=== PATIENT | male | born 1940 | race Caucasian/White ===

== ENCOUNTER 2022-11-10 07:29 | Inpatient (IN) ==
[2022-11-10] MEDS ORDERED: IOPAMIDOL 100 ML BOTTLE IV ONE (07:30)
[2022-11-10] MEDS ORDERED: 0.9 % SODIUM CHLORIDE 1,000 ML IV ONE (07:37)
--- NOTE | 2022-11-10 07:47 | Emergency Department Note ---
Weakness HPI General Chief complaint: Weakness Stated complaint: Weakness Time Seen by Provider: 11/10/22 07:36 Source: patient and family Mode of arrival: wheelchair Limitations: no limitations History of Present Illness HPI Narrative: Narrative: Vanessa presents ED with patient with concerns for stroke. State patient was a bed at 8 PM last night and was completely normal. She woke up at 4 the patient this morning and she heard him screaming from the room. When she got that he was on the floor. She states that he was weak with slurred speech and some left-sided facial droopiness. States this is not his baseline. Patient states he just feels weak. He denies fever, chills, nausea, vomiting, cardiac chest pain, heart palpitations, hemoptysis, diarrhea, dysuria, hematuria, urinary frequency, abdominal pain, extremity weakness, extremity numbness. Patient was able to ambulate. Denies any other alleviating or aggravating factors. Related Data Home Medications Medication Instructions Recorded Confirmed clopidogrel 75 mg tablet 75 mg PO QDAY 05/19/19 11/10/22 lisinopril 5 mg tablet 5 mg PO QDAY 05/19/19 11/10/22 omeprazole 20 mg capsule,delayed 20 mg PO QDAY 05/19/19 11/10/22 release simvastatin 10 mg tablet 10 mg PO QDAY 05/19/19 11/10/22 timolol 0.5 % eye drops 1 drp ophthalmic (eye) QDAY 05/19/19 11/10/22 Previous Rx's Medication Instructions Recorded benzonatate 100 mg capsule 100 mg PO .q 8 hours PRN cough #30 05/19/19 (Edel Turner) caps Allergies Allergy/AdvReac Type Severity Reaction Status Date / Time aspirin [ASPIRIN] Allergy Unknown GI UPSET Verified 11/10/22 07:33 NSAIDS (Non-Steroidal Allergy Unknown GI UPSET Verified 11/10/22 07:33 Anti-Inflamma [NSAIDS (NON-STEROIDAL ANTI-INFLAMMA] Review of Systems ROS ROS Narrative: Narrative: All systems ED: reviewed and negative except as stated. [facility] Narrative Patient History Narrative: Narrative: Medical/Surgical/Family History All Active Problems (Updated 11/10/22 @ 09:21 by Sami Simental DO) Fall (Acute) Head injury (Acute) Acute CVA (cerebrovascular accident) (Acute) Dementia (Acute) Bradycardia (Acute) Weakness (Acute) Finger laceration (Acute) Medical History Cervical vertebral fusion Hernia Social History Smoking Status: Never smoker Alcohol Intake Frequency: does not drink Substance Use: does not use Exam Narrative Narrative: Narrative: General Limitations: no limitations General appearance: Absent in distress Head Head: Present atraumatic and normocephalic Eye Eye: Present PERRL and EOMI ENT ENT: Present normal oropharynx and mucous membranes moist Neck Neck: Present normal inspection; Absent meningismus Respiratory Respiratory: Present normal lung sounds bilaterally; Absent respiratory distress Cardiovascular Cardiovascular: Present regular rate and normal rhythm Adbominal Abdominal: Present soft; Absent tenderness Extremities Extremities: Present full ROM and normal capillary refill Neurological Neurological: Present other (NIHS=3, facial droopiness some mild slurred speech) Expanded Neurological Patient oriented to: Present person, place and time (Knows what day of the week it is but does not know the year) Speech: Absent fluid speech Motor strength - LUE: 5/5 Motor strength - RUE: 5/5 Motor strength - LLE: 5/5 Motor strength - RLE: 5/5 Coma Scale Eye Opening: Spontaneous Coma Scale Motor Response: Obeys Commands Coma Scale Verbal Response: Oriented Coma Scale Total: 15 Psychiatric Psychiatric: Present normal affect and normal mood Skin Skin: Present warm (WNL) and intact Course Course Course Narrative: Patient was evaluated for weakness. Physical exam revealed that patient had left-sided facial droop and slurred speech. NIH score of 3. CT of the head was obtained with image reviewed myself with no acute cranial findings. CTA head and neck was obtained with image reviewed myself with no acute intracranial findings. Labs were obtained and were unremarkable to include normal white cell count, renal function. Case was discussed with teleneurologist who recommends the patient be admitted for complete stroke work-up to include MRI, carotid ultrasound, lipid panel. She also recommend the patient be started on Plavix 100 mg p.o. x1 dose, aspirin 325 p.o. x1 dose then 75 mg of Plavix daily x21 days and 81 mg of aspirin p.o. daily x21 days. Case was discussed with hospitalist, Dr. Balderas who has agreed to admit patient to the hospital. Plan of care was discussed with patient and his who expressed verbal understanding and agreement of plan Consultations Consultation #1: Case discussed with teleneurologist, Dr. galarza, who will review patient's images and labs and osage back when she has reviewed them. She does state the patient is outside the treatment window for any lytics so that would not be an option. Time: 07:48 Consultation #2: Dr. Lovett called back with recommendations to administer Plavix 300 mg x 1 dose and transition to 75 mg x 21 days. She also recommends administering aspirin 325 mg x 1 dose and transition to 81 mg daily x21 days. She recommends that patient have a MRI of the brain as well as carotid Doppler ultrasound. She requested permissive hypertension be allowed up to 200 systolically x24 hours and titrate down to within normal limits. Time: 08:32 Consultation #3: Case discussed with hospitalist, Dr. Balderas, who has agreed to admit patient to the hospital. Time: 10:26 Vital Signs Vital signs: Vital Signs Temperature 97.2 F 11/10/22 07:29 Pulse Rate 65 11/10/22 07:29 Respiratory Rate 19 11/10/22 07:29 Blood Pressure 180/90 11/10/22 07:29 Pulse Oximetry (%) 98 11/10/22 07:29 Oxygen Delivery Method Room Air 11/10/22 07:29 Temperature 97.2 F 11/10/22 07:29 Pulse Rate 48 L 11/10/22 10:21 Respiratory Rate 12 11/10/22 10:21 Blood Pressure 153/73 11/10/22 10:21 Pulse Oximetry (%) 99 11/10/22 10:21 Oxygen Delivery Method Room Air 11/10/22 07:29 [facility] Narrative Medical decision making narrative: Narrative: Differential Diagnosis Differential Diagnosis: Stroke, viral illness, dehydration Medical Records Medical records reviewed: Yes I reviewed the patient's medical records. Lab Data Lab results reviewed: Yes I reviewed the patient's lab results. 11/10/22 07:45 Labs: Lab Results 11/10/22 11/10/22 11/10/22 Range/Units 07:45 07:45 07:45 WBC 5.6 (4.5-11.0) K/mcL RBC 4.30 L (4.63-6.08) M/mcL Hgb 13.4 L (13.7-17.5) g/dL Hct 40.1 (40.1-51.0) % POC Hct (41-55) MCV 93.3 (80.0-100.0) fL MCH 31.2 (26.0-34.0) pg MCHC 33.4 (31.0-36.0) g/dL RDW 13.2 (11.5-14.5) % Plt Count 149 (140-440) K/mcL MPV 10.2 (8.8-12.5) fL Immature Gran % (Auto) 0.2 (0.0-0.5) % Neut % (Auto) 55.7 (38.0-78.0) % Lymph % (Auto) 28.0 (15.5-49.0) % [place] % (Auto) 12.7 H (1.0-12.0) % Eos % (Auto) 2.9 (0.0-7.0) % Baso % (Auto) 0.5 (0.0-2.0) % Lymph # (Auto) 1.57 (1.50-4.80) K/mcL [place] # (Auto) 0.71 (0.10-0.90) K/mcL Eos # (Auto) 0.16 (0.00-0.70) K/mcL Baso # (Auto) 0.03 (0.00-0.30) K/mcL Immature Gran # 0.01 (0.00-0.05) K/mcl Absolute Neutrophils 3.12 (1.80-8.00) K/mcL POC PT (11.9-14.5) POC INR (0.8-1.2) APTT 30.4 (20.0-37.0) sec POC VBG pH (7.32-7.42) POC VBG pCO2 at Temp (41-51) POC VBG pO2 (25-40) POC VBG HCO3 (24-28) POC VBG Total CO2 (25-29) POC Venous O2 Sat (40-70) POC VBG Base Excess (-2-2) VBG Lactic Acid (0.5-2) POC Sodium (133-145) POC Potassium (3.3-5.1) POC Chloride (96-108) POC Total CO2 (22-30) POC Anion Gap (8.0-16.0) POC BUN (6-20) POC Creatinine (0.6-1.2) POC Glucose (70-105) POC WB Ioniz Calcium (1.16-1.32) Total Bilirubin 0.5 (0.1-1.0) mg/dL Direct Bilirubin < 0.2 (0-0.3) mg/dL AST 15 (<40) U/L ALT 12 (<40) U/L Alkaline Phosphatase 101 (39-117) U/L Total Protein 6.8 (5.9-8.4) gm/dL Albumin 3.9 (3.2-5.2) gm/dL Globulin 2.9 (2.2-3.7) gm/dL 11/10/22 11/10/22 11/10/22 Range/Units 07:48 07:48 08:19 WBC (4.5-11.0) K/mcL RBC (4.63-6.08) M/mcL Hgb (13.7-17.5) g/dL Hct (40.1-51.0) % POC Hct 40.0 L (41-55) MCV (80.0-100.0) fL MCH (26.0-34.0) pg MCHC (31.0-36.0) g/dL RDW (11.5-14.5) % Plt Count (140-440) K/mcL MPV (8.8-12.5) fL Immature Gran % (Auto) (0.0-0.5) % Neut % (Auto) (38.0-78.0) % Lymph % (Auto) (15.5-49.0) % [place] % (Auto) (1.0-12.0) % Eos % (Auto) (0.0-7.0) % Baso % (Auto) (0.0-2.0) % Lymph # (Auto) (1.50-4.80) K/mcL [place] # (Auto) (0.10-0.90) K/mcL Eos # (Auto) (0.00-0.70) K/mcL Baso # (Auto) (0.00-0.30) K/mcL Immature Gran # (0.00-0.05) K/mcl Absolute Neutrophils (1.80-8.00) K/mcL POC PT 15.5 H (11.9-14.5) POC INR 1.3 H (0.8-1.2) APTT (20.0-37.0) sec POC VBG pH 7.39 (7.32-7.42) POC VBG pCO2 at Temp 44.1 (41-51) POC VBG pO2 35 (25-40) POC VBG HCO3 26.9 (24-28) POC VBG Total CO2 28.0 (25-29) POC Venous O2 Sat 66.0 (40-70) POC VBG Base Excess 2.0 (-2-2) VBG Lactic Acid 1.4 (0.5-2) POC Sodium 139 (133-145) POC Potassium 4.0 (3.3-5.1) POC Chloride 101 (96-108) POC Total CO2 24.0 (22-30) POC Anion Gap 19.0 H (8.0-16.0) POC BUN 15 (6-20) POC Creatinine 1.0 (0.6-1.2) POC Glucose 120 H (70-105) POC WB Ioniz Calcium 1.14 L (1.16-1.32) Total Bilirubin (0.1-1.0) mg/dL Direct Bilirubin (0-0.3) mg/dL AST (<40) U/L ALT (<40) U/L Alkaline Phosphatase (39-117) U/L Total Protein (5.9-8.4) gm/dL Albumin (3.2-5.2) gm/dL Globulin (2.2-3.7) gm/dL Radiology Data Radiology results reviewed: Yes I reviewed the patient's radiology results. Radiology results narrative: CT of the head obtained with image reviewed myself, no acute intracranial findings. CTA of the head obtained with image reviewed myself, no acute findings CTA of the neck obtained concerning for right carotid stenosis EKG Data EKG #1: EKG attestation: Yes I reviewed and interpreted this EKG. EKG shows normal: sinus rhythm Rate: normal Rhythm: NSR [place]/QRS: RBBB Heart block present: None ST segment elevation in: None ST segment depression in: None QTc: normal QRS morphology: Present normal Interpretation: no acute changes Core Measures AMI Core Measures Followed: Yes Discharge Plan Patient/Caregiver Discharge Instructions Pt seen by [employer] TR[employer] DRIVER/PA only: No Clinical Impression: Acute CVA (cerebrovascular accident) Patient Disposition: Xfer As Outpt/Obs ([facility]) Condition: Fair Follow up with: Erica Devine ARNP [Referring] - Prescriptions: No Action clopidogrel 75 mg tablet 75 mg PO QDAY omeprazole 20 mg capsule,delayed release(DR/EC) 20 mg PO QDAY timolol 0.5 % drops 1 drp OPHTHALMIC QDAY simvastatin 10 mg tablet 10 mg PO QDAY lisinopril 5 mg tablet 5 mg PO QDAY benzonatate [Tessalon Perles] 100 mg capsule 100 mg PO .q 8 hours PRN (Reason: cough) Qty: 30 0RF
[2022-11-10 07:52] LABS: POC Calcium, Ionized 1.14 (1.16-1.32)
[2022-11-10 08:23] LABS: POC INR 1.3 (0.8-1.2); POC Pro Time 15.5 (11.9-14.5)
[2022-11-10] MEDS ORDERED: PHENobarb/HYOSCY/ATROPINE/SCOP 1 DOSE BOTTLE PO ONE (08:38)
[2022-11-10] MEDS ORDERED: CLOPIDOGREL 300 MG TABLET PO ONE (08:38)
[2022-11-10] MEDS ORDERED: ASPIRIN 325 MG ENTERIC COATED TABLET PO ONE (08:38)
[2022-11-10] MEDS ORDERED: ASPIRIN 81 MG TAB.CHEW CHEWED ONE (08:43)
[2022-11-10 08:50] LABS: ALT/SGPT 12 U/L (<40); AST/SGOT 15 U/L (<40); Albumin 3.9 gm/dL (3.2-5.2); Alkaline Phosphatase 101 U/L (39-117); Bilirubin,Direct < 0.2 mg/dL (0-0.3); Bilirubin,Total 0.5 mg/dL (0.1-1.0); Globulin 2.9 gm/dL (2.2-3.7)
[2022-11-10 09:24] LABS: Basophils # (Auto) 0.03 K/mcL (0.00-0.30); Basophils % (Auto) 0.5 % (0.0-2.0); Eosinophils # (Auto) 0.16 K/mcL (0.00-0.70); Eosinophils % (Auto) 2.9 % (0.0-7.0); Hematocrit 40.1 % (40.1-51.0); Hemoglobin 13.4 g/dL (13.7-17.5); Lymphocytes # (Auto) 1.57 K/mcL (1.50-4.80); Mean Cell Volume 93.3 fL (80.0-100.0); Mean Corpuscular HGB Conc 33.4 g/dL (31.0-36.0); Mean Platelet Volume 10.2 fL (8.8-12.5); Monocytes # (Auto) 0.71 K/mcL (0.10-0.90); Monocytes % (Auto) 12.7 % (1.0-12.0); Neutrophils % (Auto) 55.7 % (38.0-78.0); Platelet Count 149 K/mcL (140-440); Red Cell Distribution Width 13.2 % (11.5-14.5); WBC 5.6 K/mcL (4.5-11.0)
--- NOTE | 2022-11-10 09:39 | Cat Scan Report ---
CLINICAL INFORMATION: Code stroke COMPARISON: Head CT 07/06/2021 TECHNIQUE: 2.5 mm helical slices were obtained in the skull base to vertex. Following reconstruction, axial reformatted images were reviewed at bone and parenchymal windows. The exam was performed using radiation dose optimization techniques including, but not limited to, automated exposure control, adjustment of the mA and/or kV according to patient size and use of iterative reconstruction technique. FINDINGS: The ventricles, sulci, fissures, and cisterns are symmetrically enlarged compatible with moderate age-related atrophy. No extra-axial fluid collections are identified. Moderate patchy chronic ischemic changes, in the deep cerebral white matter, are expected for age. There is no hemorrhage, mass effect, or edema. Bone windows show no osseous abnormality. A 5 mm lucency in the right parietal calvaria described by direct radiology has been stable since 2007 and should be considered benign IMPRESSION: Moderate atrophy and chronic ischemic changes in the deep cerebral white matter-expected for age. No acute findings Subtotal opacification of right sphenoid sinus has developed since prior exam compatible with severe sphenoid sinusitis. Left sphenoid maxillary ethmoid and frontal air cells are clear Interpreted and Authenticated by: Deshaun Villafuerte 11/10/22
--- NOTE | 2022-11-10 09:57 | Cat Scan Report ---
CLINICAL INFORMATION: Code stroke COMPARISON: None. TECHNIQUE: 80 cc of Isovue-370 were injected intravenously , and using SmartPrep to maximize cerebral arterial opacification, 0.625 mm helical slices were obtained from the skull base through the cerebral vertex. Following reconstruction , sagittal, coronal and axial reformatted images were processed and reviewed at multiple windows and levels. 3D volume rendered and MIP images were acquired at a independent workstation. The exam was performed using radiation dose optimization techniques including, but not limited to, automated exposure control, adjustment of the mA and/or kV according to patient size and use of iterative reconstruction technique. FINDINGS: The cavernous segments of the intracranial internal carotid artery contain moderate calcific plaque, but no significant stenoses. The remaining intracranial internal arteries are normal. 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 The remaining anterior cerebral arteries are unremarkable. There are scattered stenoses less than 50% within the distal MCA branches. No evidence of occlusion. There are two stenoses greater than 50% within the right P2 posterior cerebral arteries. The left posterior cerebral, basilar and intracranial vertebral arteries are patent. Superficial/deep cerebral veins and deep venous sinuses are widely patent IMPRESSION: 1. No evidence of thrombotic or embolic occlusion. 2. Hypoplasia of the left A1 segment. Normal-appearing left and right anterior cerebral arteries originate from the right A1 segment-azygos origin. 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 3. 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 Interpreted and Authenticated by: Deshaun Villafuerte 11/10/22
--- NOTE | 2022-11-10 10:07 | Cat Scan Report ---
CLINICAL INFORMATION: Code stroke COMPARISON: None. TECHNIQUE: 80 cc of Isovue-300 were injected intravenously followed by 40 cc of normal saline flush. Using SmartPrep, 0.625 helical slices were obtained from the thoracic aortic arch through the [place]. Following reconstruction, 2.5 mm sagittal, coronal and axial reformatted images were processed. MIPS , 3-D volume rendering and CPR images were also constructed. The exam was performed using radiation dose optimization techniques including, but not limited to, automated exposure control, adjustment of the mA and/or kV according to patient size and use of iterative reconstruction technique. FINDINGS: The thoracic aortic arch is normal diameter with minimal intimal thickening and conventional aortic branching. The brachiocephalic, both subclavian, both common, internal and external carotid and both vertebral arteries are widely patent. There is moderate calcific plaque in the posterior [place]amp[place] of both internal carotid artery origins but this does not result in stenoses. Lung apices show mild centrilobular emphysema. Anterior/posterior fusion changes C5-6 C6-7 are solid. IMPRESSION: Calcific plaque in both proximal internal carotid arteries which does not result in significant stenosis. The arteries are otherwise normal. Centrilobular emphysema. Interpreted and Authenticated by: Deshaun Villafuerte 11/10/22
--- NOTE | 2022-11-10 11:30 | Internal Med History&Physical ---
HPI History of Present Illness Patient information: Note initiated : 11/10/22 at 11:21 am Service Date, if different from initiated Date: [] Patient: Andrew Cavanaugh a 82 y/o M admitted on . Chief Complaint: [] History of present illness: Mr. Cavanaugh is a 82 year old M Presents the ED via his for speech difficulty and slurring. Patient was last seen normal last night. This morning his found him on the floor at bedside. She notes he had a hard time speaking that there is also slurring and he was slow to speech and that he also had some drooping of his face but she could not remember which side. She when she fed him breakfast he was drooling out of his mouth. 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 In the ED he was evaluated had a CT of the head noncontrast which showed no acute infarct but showed moderate atrophy and chronic ischemic changes. CTA head and neck showed no significant stenosis in internal carotid arteries. 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 Vitals were significant for hypertension of 178/80 on admission. He has been sinus bradycardia which is chronic. Case discussed with stroke neurologist who recommended Plavix and aspirin load and then treated with dual antiplatelets for 21 days. History is obtained from the as patient is a poor historian and has speech difficulties. She denies any other acute illnesses recently. Patient denies any focal weakness or numbness. Review of Systems: Pertinent positives as above. Denies headache/fever/chills/nausea/vomiting/chest or abdominal pain/cough/dyspnea/diarrhea. Remaining 10 point review of system reviewed negative. PHYSICAL EXAM General: Alert, Awake, No acute Distress Eyes/N/T: EOMI, no scleral icterus, PERRL, Head/Neck: neck supple, full ROM, normocephalic atraumatic CV: Bradycardic but regular, No murmurs, normal s1/s2 Pulm: Clear b/l, no wheezing/rhonchi/rales, no respiratory distress Abd: soft, nontender, +BS x4 Ext: no clubbing/cyanosis/edema, nontender Neuro: Alert, no pronator drift, slow to speech and mild dysarthria, strength appears symmetrical. No noticeable facial droop when asked to smile Psychiatric: Skin: warm/dry, normal color PFSH PFSH All Active Problems (Updated 11/10/22 @ 09:21 by Sami Simental DO) Fall (Acute) Head injury (Acute) Acute CVA (cerebrovascular accident) (Acute) Dementia (Acute) Bradycardia (Acute) Weakness (Acute) Finger laceration (Acute) Medical History Cervical vertebral fusion Hernia Social History (Updated 05/19/19 @ 15:28 by Marti Holman PA-C) smoking status: Never smoker alcohol intake frequency: does not drink substance use type: does not use MEDS/ALLERGIES Home Medications and Allergies Home Medications Medication Instructions Recorded Confirmed Type clopidogrel 75 mg tablet 75 mg PO QPM 05/19/19 11/10/22 History lisinopril 5 mg tablet 5 mg PO QDAY 05/19/19 11/10/22 History omeprazole 20 mg capsule,delayed 20 mg PO QDAY 05/19/19 11/10/22 History release simvastatin 10 mg tablet 10 mg PO QPM 05/19/19 11/10/22 History timolol 0.5 % eye drops 1 drp ophthalmic (eye) QDAY 05/19/19 11/10/22 History latanoprost 0.005 % eye drops 1 drp ophthalmic (eye) QHS 11/10/22 11/10/22 History memantine 10 mg tablet 10 mg PO QPM 11/10/22 11/10/22 History terazosin 5 mg capsule 5 mg PO QHS 11/10/22 11/10/22 History Allergies Allergy/AdvReac Type Severity Reaction Status Date / Time aspirin [ASPIRIN] Allergy Unknown GI UPSET Verified 11/10/22 07:33 NSAIDS (Non-Steroidal Allergy Unknown GI UPSET Verified 11/10/22 07:33 Anti-Inflamma [NSAIDS (NON-STEROIDAL ANTI-INFLAMMA] EXAM Constitutional Vitals: Temp Pulse Resp BP Pulse Ox O2 Del Method 97.2 F 48 L 18 178/80 100 Room Air 11/10/22 07:29 11/10/22 11:01 11/10/22 11:01 11/10/22 11:01 11/10/22 11:01 11/10/22 07:29 DATA Data Completed and Pending Labs: Labs from last 24 hours 11/10/22 11/10/22 11/10/22 08:19 07:48 07:48 WBC RBC Hgb Hct POC Hct 40.0 L MCV MCH MCHC RDW Plt Count MPV Immature Gran % (Auto) Neut % (Auto) Lymph % (Auto) [place] % (Auto) Eos % (Auto) Baso % (Auto) Lymph # (Auto) [place] # (Auto) Eos # (Auto) Baso # (Auto) Immature Gran # Absolute Neutrophils POC PT 15.5 H POC INR 1.3 H APTT POC VBG pH 7.39 POC VBG pCO2 at Temp 44.1 POC VBG pO2 35 POC VBG HCO3 26.9 POC VBG Total CO2 28.0 POC Venous O2 Sat 66.0 POC VBG Base Excess 2.0 VBG Lactic Acid 1.4 POC Sodium 139 POC Potassium 4.0 POC Chloride 101 POC Total CO2 24.0 POC Anion Gap 19.0 H POC BUN 15 POC Creatinine 1.0 POC Glucose 120 H POC WB Ioniz Calcium 1.14 L Total Bilirubin Direct Bilirubin AST ALT Alkaline Phosphatase Total Protein Albumin Globulin 11/10/22 11/10/22 11/10/22 07:45 07:45 07:45 WBC 5.6 RBC 4.30 L Hgb 13.4 L Hct 40.1 POC Hct MCV 93.3 MCH 31.2 MCHC 33.4 RDW 13.2 Plt Count 149 MPV 10.2 Immature Gran % (Auto) 0.2 Neut % (Auto) 55.7 Lymph % (Auto) 28.0 [place] % (Auto) 12.7 H Eos % (Auto) 2.9 Baso % (Auto) 0.5 Lymph # (Auto) 1.57 [place] # (Auto) 0.71 Eos # (Auto) 0.16 Baso # (Auto) 0.03 Immature Gran # 0.01 Absolute Neutrophils 3.12 POC PT POC INR APTT 30.4 POC VBG pH POC VBG pCO2 at Temp POC VBG pO2 POC VBG HCO3 POC VBG Total CO2 POC Venous O2 Sat POC VBG Base Excess VBG Lactic Acid POC Sodium POC Potassium POC Chloride POC Total CO2 POC Anion Gap POC BUN POC Creatinine POC Glucose POC WB Ioniz Calcium Total Bilirubin 0.5 Direct Bilirubin < 0.2 AST 15 ALT 12 Alkaline Phosphatase 101 Total Protein 6.8 Albumin 3.9 Globulin 2.9 A/P Narrative A/P Narrative: A: *Strokelike symptoms, dysarthria: -abcd=5 *Early Alzheimer's dementia: *HTN/HLD: *GERD: * P: -DAPT x21 days -Lipid panel, increase home statin -IVF -Permissive hypertension, hold home ACEI for now -Neurochecks -MRI and echo pending -Bedside swallow eval and ST eval - -Home medication reconciliation -PT/OT -CM for placement needs -ppx: Lovenox/home PPI Time Spent With Patient Time: Total time spent is greater than 50% in coordination of care (as documented) at patient's floor/unit and/or counseling patient: Initial: Total time with patient: 75 - 90 minutes QUALITY Stroke Symptom Onset Unknown: No
[2022-11-10] MEDS ORDERED: MAGNESIUM SULFATE 2 GM/50 ML BAG IV PRN (12:14)
[2022-11-10] MEDS ORDERED: POLYETHYLENE GLYCOL 3350 17 GM PACKET PO PRN (12:14)
[2022-11-10] MEDS ORDERED: IPRATROPIUM/ALBUTEROL 3 ML AMPUL.NEB NEB PRN (12:14)
[2022-11-10] MEDS ORDERED: 0.9 % SODIUM CHLORIDE 1,000 ML IV SCH (12:14)
[2022-11-10] MEDS ORDERED: hydrALAZINE 20 MG/ML VIAL IV PRN (12:14)
[2022-11-10] MEDS ORDERED: ACETAMINOPHEN 325 MG TABLET PO PRN (12:14)
[2022-11-10] MEDS ORDERED: POTASSIUM CHLORIDE 40 MEQ in DEXTROSE 5% IN WATER 500 ML IV PRN (12:14)
[2022-11-10] MEDS ORDERED: SENNOSIDES 1 TABLET PO PRN (12:14)
[2022-11-10] MEDS ORDERED: BENZONATATE 100 MG CAPSULE PO PRN ×2 (12:14→21:00)
[2022-11-10] MEDS ORDERED: POTASSIUM CHLORIDE 20 MEQ TABLET PO PRN ×2 (12:14)
[2022-11-10] MEDS ORDERED: ONDANSETRON 4 MG/2 ML VIAL IV PRN (12:14)
[2022-11-10 14:24] LABS: HDL Cholesterol 34 mg/dL (>40); LDL Cholesterol,Calculated 72 mg/dL (<100); Non-HDL Cholesterol 85 mg/dL (<130); Triglycerides 67 mg/dL (<150)
--- NOTE | 2022-11-10 14:53 | Magnetic Resonance Report ---
CLINICAL INFORMATION: Dysarthria COMPARISON: Head CT without contrast 11/10/2022. TECHNIQUE: Sagittal T1 FLAIR, axial T2 FLAIR diffusion ADC images were acquired. FINDINGS: The ventricles, sulci, fissures and cisterns are symmetrically enlarged compatible moderate age-related atrophy. Are no extra-axial fluid collections or mass appreciated. Senescent chronic ischemic changes are confluent in the deep cerebral white matter. An atypical 9 x 2 mm linear region of restricted diffusion is seen in the deep white matter of the right frontoparietal junction. No hemorrhage, edema or mass effect. IMPRESSION: Atypical linear acute lacunar infarct in the deep white matter of the right frontoparietal junction. Moderate atrophy and chronic ischemic changes in deep cerebral white matter expected for age Interpreted and Authenticated by: Deshaun Villafuerte 11/10/22
[2022-11-10] MEDS ORDERED: SIMVASTATIN 10 MG TABLET PO SCH (21:00)
[2022-11-10] MEDS: MEMANTINE 10 MG TABLET PO SCH (21:15)
[2022-11-10] MEDS: DOCUSATE SODIUM 100 MG CAPSULE PO SCH (21:15)
[2022-11-10] MEDS: LATANOPROST OPHTH DROPS 2.5ML BOTTLE OU SCH (21:15)
[2022-11-10] MEDS: SIMVASTATIN 40 MG TABLET PO SCH (21:15)
--- NOTE | 2022-11-11 07:48 | Internal Med Progress Note ---
SUBJECTIVE Subjective Patient information: Note initiated : 11/11/22 at 7:43 am Service Date, if different from initiated Date: [] Patient: Andrew Cavanaugh 82 y/o M admitted on 11/10/22. Chief Complaint: [] Interval history: History of present illness: Mr. Cavanaugh is a 82 year old M Presents the ED via his for speech difficulty and slurring. Patient was last seen normal last night. This morning his found him on the floor at bedside. She notes he had a hard time speaking that there is also slurring and he was slow to speech and that he also had some drooping of his face but she could not remember which side. She when she fed him breakfast he was drooling out of his mouth. 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 In the ED he was evaluated had a CT of the head noncontrast which showed no acute infarct but showed moderate atrophy and chronic ischemic changes. CTA head and neck showed no significant stenosis in internal carotid arteries. 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 Vitals were significant for hypertension of 178/80 on admission. He has been sinus bradycardia which is chronic. Case discussed with stroke neurologist who recommended Plavix and aspirin load and then treated with dual antiplatelets for 21 days. History is obtained from the as patient is a poor historian and has speech difficulties. She denies any other acute illnesses recently. Patient denies any focal weakness or numbness. 11/11 MRI revealed lacunar infarct right frontal parietal junction. speech clearing up. Permissive hypertension. Review of Systems: Pertinent positives as above. Denies headache/fever/chills/nausea/vomiting/chest or abdominal roosevelt n/cough/dyspnea/diarrhea. PHYSICAL EXAM General: Alert, Awake, No acute Distress Eyes/N/T: EOMI, no scleral icterus, Head/Neck: neck supple, full ROM, CV: Bradycardic but regular, No murmurs, Pulm: Clear b/l, no wheezing/rhonchi/rales, no respiratory distress Abd: soft, nontender, +BS x4 Ext: no clubbing/cyanosis/edema, nontender Neuro: Alert, speech/dysarthria improving, strength appears symmetrical. No noticeable facial droop when asked to smile Psychiatric: Skin: warm/dry, normal color Constitutional Vitals: Vital Signs Temp Pulse Resp BP Pulse Ox O2 Del Method 98.1 F 51 L 16 179/86 97 Room Air 11/11/22 04:01 11/11/22 05:01 11/11/22 05:01 11/11/22 05:01 11/11/22 05:01 11/11/22 05:01 Period Temp Pulse Resp BP Sys/Vasquez Pulse Ox O2 Del Method O2 Flow Rate Last 24 Hr 97.1 F-98.1 F 45-65 10-19 143-196/69-96 95-100 Room Air-Room Air Intake and Output 11/10/22 11/11/22 11/11/22 19:59 03:59 11:59 Intake Total 120 1240 Output Total 220 725 600 Balance -100 515 -600 Weight 68.266 kg 68.266 kg Intake & Output: Intake & Output 11/10/22 11/11/22 11/11/22 19:59 03:59 11:59 Intake Total 120 1240 Output Total 220 725 600 Balance -100 515 -600 Weight 68.266 kg 68.266 kg Intake: IV 1000 Sodium Chloride 0.9% 1,000 ml @ 1000 75 mls/hr IV .[id number] [facility] Rx#: [id number] Oral 120 240 Output: Void Amount 220 725 600 Other: Meal Lunch Dinner Percent of Meal Consumed 100% 50% Feeding Ability Independent Assist with Tray Set Up Urine Appearance Clear Clear Clear Urine Color Yellow Bright Yellow Pale Pale Stool Size Small Small Stool Color Brown Stool Consistency Normal for Patient Formed Daja OBJ DATA Labs 11/10/22 07:45 11/11/22 08:43 Labs: Abnormal Lab Results 11/10/22 11/10/22 11/10/22 08:19 07:48 07:45 RBC Hgb POC Hct 40.0 L Burnet % (Auto) POC PT 15.5 H POC INR 1.3 H POC Anion Gap 19.0 H POC Glucose 120 H POC WB Ioniz Calcium 1.14 L HDL Cholesterol 34 L 11/10/22 07:45 RBC 4.30 L Hgb 13.4 L POC Hct Burnet % (Auto) 12.7 H POC PT POC INR POC Anion Gap POC Glucose POC WB Ioniz Calcium HDL Cholesterol Meds: Medications Acetaminophen (Acetaminophen 325 Mg Tablet) 650 mg PO Q6HP PRN PRN Reason: fever > 101 Albuterol/Ipratropium (Ipratropium/Albuterol 3 Ml Ampul.Neb) 3 ml NEB Q4HP PRN PRN Reason: Shortness Of Breath Aspirin (Aspirin 81 Mg Tab.Chew) 81 mg CHEWED DAILY [facility] Benzonatate (Benzonatate 100 Mg Capsule) 100 mg PO Q8HP PRN PRN Reason: cough Clopidogrel Bisulfate (Clopidogrel 75 Mg Tablet) 75 mg PO QDAY [facility] Docusate Sodium (Docusate Sodium 100 Mg Capsule) 100 mg PO BID [facility] Last Admin: 11/10/22 21:15 Dose: 100 mg Enoxaparin Sodium (Enoxaparin 40 Mg/0.4 Ml Syringe) 40 mg SQ DAILY [facility] Hydralazine HCl (Hydralazine 20 Mg/Ml Vial) 0 mg IV Q2HP PRN PRN Reason: Hypertension Potassium Chloride 40 meq/ (Dextrose) 520 mls @ 130 mls/hr IV UD PRN PRN Reason: Potassium Level < 3 Magnesium Sulfate (Magnesium Sulfate) 2 gm in 50 mls @ 25 mls/hr IV UD PRN PRN Reason: Magnesium Level </= 1.6 Latanoprost (Latanoprost Ophth Drops 2.5ml Bottle) 1 gtt OU QHS [facility] Last Admin: 11/10/22 21:15 Dose: 1 gtt Memantine (Memantine 10 Mg Tablet) 10 mg PO QPM [facility] Last Admin: 11/10/22 21:15 Dose: 10 mg Omeprazole (Omeprazole 20 Mg Capsule) 20 mg PO QDAY [facility] Ondansetron HCl (Ondansetron 4 Mg/2 Ml Vial) 4 mg IV Q4HP PRN PRN Reason: Nausea And Vomiting Timolol 0.5 % Drops 1 dose OP QDAY [facility] Polyethylene Glycol (Polyethylene Glycol 3350 17 Gm Packet) 17 gm PO DAILYP PRN PRN Reason: Constipation Potassium Chloride (Potassium Chloride 20 Meq Tablet) 40 meq PO UD PRN PRN Reason: Potassium Level of 3-3.5 Potassium Chloride (Potassium Chloride 20 Meq Tablet) 40 meq PO UD PRN PRN Reason: Potassium Level < 3 Senna (Sennosides 1 Tablet) 2 tab PO DAILYP PRN PRN Reason: Constipation Simvastatin (Simvastatin 40 Mg Tablet) 80 mg PO HS [facility] Last Admin: 11/10/22 21:15 Dose: 80 mg Terazosin HCl (Terazosin 5 Mg Capsule) 5 mg PO QHS JENNIFER A/P Narrative A/P Narrative: A: *Acute CVA(right frontoparietal), dysarthria: - *Oropharyngeal Dysphagia, moderate: *Early Alzheimer's dementia: *HTN/HLD: *GERD: * P: -DAPT x21 days -Statin -IVF d/c -Permissive hypertension, hold home ACEI for now -Neurochecks -echo pending -ST eval, dysphagia dietl -PT/OT -CM for placement needs -ppx: Lovenox/home PPI Time Spent With Patient Time: Total time spent is greater than 50% in coordination of care (as documented) at patient's floor/unit and/or counseling patient: Subsequent: Total time with patient: 50 - 65 Minutes QUALITY Stroke Onset of Symptoms Date: 11/10/22 Onset of Symptoms Time: 04:00 Symptom Onset Unknown: No
[2022-11-11] MEDS: ASPIRIN 81 MG TAB.CHEW CHEWED SCH (09:08)
[2022-11-11] MEDS: Timolol 0.5 % drops OP SCH ×2 (09:08→20:35)
[2022-11-11] MEDS: DOCUSATE SODIUM 100 MG CAPSULE PO SCH ×2 (09:08→20:33)
[2022-11-11] MEDS: CLOPIDOGREL 75 MG TABLET PO SCH (09:08)
[2022-11-11] MEDS: ENOXAPARIN 40 MG/0.4 ML SYRINGE SQ SCH (09:08)
[2022-11-11] MEDS: OMEPRAZOLE 20 MG CAPSULE PO SCH (09:08)
[2022-11-11 10:26] LABS: ALT/SGPT 11 U/L (<40); AST/SGOT 13 U/L (<40); Albumin 3.9 gm/dL (3.2-5.2); Albumin/Globulin Ratio 1.3 (1.0-2.3); Alkaline Phosphatase 106 U/L (39-117); Bilirubin,Direct < 0.2 mg/dL (0-0.3); Bilirubin,Total 0.5 mg/dL (0.1-1.0); Blood Urea Nitrogen 8 mg/dL (8-23); Calcium 8.6 mg/dL (8.6-10.4); Carbon Dioxide 26 mmol/L (22-30); Chloride 102 mmol/L (96-108); Globulin 2.9 gm/dL (2.2-3.7); Glomerular Filtration Rate 84; Glucose 99 mg/dL (70-105); Lactate Dehydrogenase 198 U/L (135-225); Phosphorous 2.9 mg/dL (2.5-4.5); Triglycerides 64 mg/dL (<150); Uric Acid 3.8 mg/dL (2.5-8.0)
--- NOTE | 2022-11-11 15:33 | Discharge Summary ---
Discharge Provider Provider IMPORTANT FOLLOW-UP INFORMATION FOR PCP: Patient information: Note initiated : 11/11/22 at 3:32 pm Service Date, if different from initiated Date: [] Patient: Andrew Cavanaugh 82 y/o M admitted on 11/11/22. Chief Complaint: [] Date of admission: 11/11/22 09:48 Discharge date: 11/12/22 Primary care physician: Paula Ramirez Consults: 11/10/22 Consult to Physician [CONS] Stat Comment: Consulting Provider: Keron Balderas Reason For Exam: Physician to Consult 11/10/22 07:41 Consult to Physician [CONS] Stat Comment: Consulting Provider: [facility] Reason For Exam: Physician to Consult COURSE Hospital Course Hospital course: History of present illness: Mr. Cavanaugh is a 82 year old M Presents the ED via his for speech difficulty and slurring. Patient was last seen normal last night. This morning his found him on the floor at bedside. She notes he had a hard time speaking that there is also slurring and he was slow to speech and that he also had some drooping of his face but she could not remember which side. She when she fed him breakfast he was drooling out of his mouth. 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 In the ED he was evaluated had a CT of the head noncontrast which showed no acute infarct but showed moderate atrophy and chronic ischemic changes. CTA head and neck showed no significant stenosis in internal carotid arteries. 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 Vitals were significant for hypertension of 178/80 on admission. He has been sinus bradycardia which is chronic. Case discussed with stroke neurologist who recommended Plavix and aspirin load and then treated with dual antiplatelets for 21 days. History is obtained from the as patient is a poor historian and has speech difficulties. She denies any other acute illnesses recently. Patient denies any focal weakness or numbness. 11/11 MRI revealed lacunar infarct right frontal parietal junction. speech clearing up. Permissive hypertension. 11/12 Patient seems a feeling better. No overnight event or new complaints. Doing well this dysphagia diet. Restart SHEFALI if blood pressure starts increasing again currently normal. A: *Acute CVA(right frontoparietal), dysarthria: - *Oropharyngeal Dysphagia, moderate: *Early Alzheimer's dementia: *HTN/HLD: *GERD: * P: -DAPT x21 days -Statin -ST eval, dysphagia diet Discharge diagnosis: Acute CVA dysphagia Secondary discharge diagnosis: Alzheimer's hypertension hyperlipidemia GERD Time Spent with Patient Time attestation: Total time spent providing and/or coordinating discharge services: Time spent: Greater than 30 minutes EXAM Constitutional Vitals: Temp Pulse Resp BP Pulse Ox O2 Del Method 97.6 F 56 L 17 109/65 98 Room Air 11/11/22 12:01 11/11/22 14:01 11/11/22 14:01 11/11/22 14:01 11/11/22 14:01 11/11/22 13:01 Discharge Data Data Completed and Pending Labs on day of discharge: Labs from last 24 hours 11/11/22 08:43 Sodium 136 Potassium 4.1 Chloride 102 Carbon Dioxide 26 Anion Gap 8.0 BUN 8 Creatinine 0.8 GFR Calculation 84 Glucose 99 Uric Acid 3.8 Calcium 8.6 Phosphorus 2.9 Magnesium 2.4 Total Bilirubin 0.5 Direct Bilirubin < 0.2 GGT 17 AST 13 ALT 11 Alkaline Phosphatase 106 Lactate Dehydrogenase 198 Total Protein 6.8 Albumin 3.9 Globulin 2.9 Albumin/Globulin Ratio 1.3 Triglycerides 64 Discharge Plan Patient/Caregiver Discharge Instructions Activity: increase activity as tolerated Diet: Regular Diet and Dysphagia Level 6 Soft & Bite-Sized Foods Activity Restrictions/Additional Instructions: Follow-up with speech therapy outpatient. Dysphagia level 6 with mildly thickened liquids. Prescriptions: New aspirin 81 mg tablet,delayed release (DR/EC) 81 mg PO QDAY Qty: 20 0RF Continued clopidogrel 75 mg tablet 75 mg PO QPM omeprazole 20 mg capsule,delayed release(DR/EC) 20 mg PO QDAY timolol 0.5 % drops 1 drp OPHTHALMIC QDAY lisinopril 5 mg tablet 5 mg PO QDAY latanoprost 0.005 % drops 1 drp OPHTHALMIC (EYE) QHS Rx Instructions: 1 drop in both eyes terazosin 5 mg Capsule 5 mg PO QHS memantine 10 mg Tablet 10 mg PO QPM Changed simvastatin 10 mg tablet 20 mg PO QPM Qty: 30 0RF Follow Up Plan Follow up with: Erica Devine ARNP [Referring] - Patient Disposition: Home Health Service Prognosis: Fair Overall status at discharge: patient is progressing back to baseline Discharge Orders: Discharge Order (Routine); Ordered 11/12/22 Ordered By: Keron Balderas
[2022-11-11] MEDS ORDERED: MELATONIN 3 MG TABLET PO SCH (19:00)
[2022-11-11] MEDS: MEMANTINE 10 MG TABLET PO SCH (20:33)
[2022-11-11] MEDS: SIMVASTATIN 40 MG TABLET PO SCH (20:33)
[2022-11-11] MEDS: LATANOPROST OPHTH DROPS 2.5ML BOTTLE OU SCH (20:34)
[2022-11-11] MEDS ORDERED: TERAZOSIN 5 MG CAPSULE PO SCH (21:00)
[2022-11-11] MEDS ORDERED: diphenhydrAMINE 25 MG CAPSULE PO SCH (21:00)
--- NOTE | 2022-11-12 08:30 | Internal Med Progress Note ---
SUBJECTIVE Subjective Patient information: Note initiated : 11/12/22 at 8:28 am Service Date, if different from initiated Date: [] Patient: Andrew Cavanaugh 82 y/o M admitted on 11/11/22. Chief Complaint: [] Interval history: History of present illness: Mr. Cavanaugh is a 82 year old M Presents the ED via his for speech difficulty and slurring. Patient was last seen normal last night. This morning his found him on the floor at bedside. She notes he had a hard time speaking that there is also slurring and he was slow to speech and that he also had some drooping of his face but she could not remember which side. She when she fed him breakfast he was drooling out of his mouth. 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 In the ED he was evaluated had a CT of the head noncontrast which showed no acute infarct but showed moderate atrophy and chronic ischemic changes. CTA head and neck showed no significant stenosis in internal carotid arteries. 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 Vitals were significant for hypertension of 178/80 on admission. He has been sinus bradycardia which is chronic. Case discussed with stroke neurologist who recommended Plavix and aspirin load and then treated with dual antiplatelets for 21 days. History is obtained from the as patient is a poor historian and has speech difficulties. She denies any other acute illnesses recently. Patient denies any focal weakness or numbness. 11/11 MRI revealed lacunar infarct right frontal parietal junction. speech clearing up. Permissive hypertension. Review of Systems: Pertinent positives as above. Denies headache/fever/chills/nausea/vomiting/chest or abdominal roosevelt n/cough/dyspnea/diarrhea. PHYSICAL EXAM General: Alert, Awake, No acute Distress Eyes/N/T: EOMI, no scleral icterus, Head/Neck: neck supple, full ROM, CV: Bradycardic but regular, No murmurs, Pulm: Clear b/l, no wheezing/rhonchi/rales, no respiratory distress Abd: soft, nontender, +BS x4 Ext: no clubbing/cyanosis/edema, nontender Neuro: Alert, speech/dysarthria improving, strength appears symmetrical. No noticeable facial droop when asked to smile Psychiatric: Skin: warm/dry, normal color Constitutional Vitals: Vital Signs Temp Pulse Resp BP Pulse Ox O2 Del Method 97.5 F 51 L 16 115/59 96 Room Air 11/12/22 07:01 11/12/22 07:01 11/12/22 07:01 11/12/22 07:01 11/12/22 07:01 11/12/22 07:01 Period Temp Pulse Resp BP Sys/Vasquez Pulse Ox O2 Del Method O2 Flow Rate Last 24 Hr 97.2 F-97.6 F 50-62 7-21 93-198/50-95 96-99 Room Air-Room Air Intake and Output 11/11/22 11/12/22 11/12/22 19:59 03:59 11:59 Intake Total 240 600 100 Output Total 100 100 Balance 140 500 100 Weight 68.946 kg Intake & Output: Intake & Output 11/11/22 11/12/22 11/12/22 19:59 03:59 11:59 Intake Total 240 600 100 Output Total 100 100 Balance 140 500 100 Weight 68.946 kg Intake: Oral 240 600 100 Output: Void Amount 100 100 Other: Meal Lunch Dinner Percent of Meal Consumed 75% 100% Feeding Ability Assist with Tray Set Up Assist with Tray Set Up Urine Appearance Clear Clear Urine Color Pale Yellow Pale OBJ DATA Labs 11/10/22 07:45 11/11/22 08:43 Labs: Abnormal Lab Results 11/10/22 11/10/22 11/10/22 08:19 07:48 07:45 RBC Hgb POC Hct 40.0 L [place] % (Auto) POC PT 15.5 H POC INR 1.3 H POC Anion Gap 19.0 H POC Glucose 120 H POC WB Ioniz Calcium 1.14 L HDL Cholesterol 34 L 11/10/22 07:45 RBC 4.30 L Hgb 13.4 L POC Hct [place] % (Auto) 12.7 H POC PT POC INR POC Anion Gap POC Glucose POC WB Ioniz Calcium HDL Cholesterol Meds: Medications Acetaminophen (Acetaminophen 325 Mg Tablet) 650 mg PO Q6HP PRN PRN Reason: fever > 101 Albuterol/Ipratropium (Ipratropium/Albuterol 3 Ml Ampul.Neb) 3 ml NEB Q4HP PRN PRN Reason: Shortness Of Breath Aspirin (Aspirin 81 Mg Tab.Chew) 81 mg CHEWED DAILY [facility] Last Admin: 11/11/22 09:08 Dose: 81 mg Benzonatate (Benzonatate 100 Mg Capsule) 100 mg PO Q8HP PRN PRN Reason: cough Clopidogrel Bisulfate (Clopidogrel 75 Mg Tablet) 75 mg PO QDAY [facility] Last Admin: 11/11/22 09:08 Dose: 75 mg Diphenhydramine HCl (Diphenhydramine 25 Mg Capsule) 25 mg PO HS [facility] Last Admin: 11/11/22 20:33 Dose: 25 mg Docusate Sodium (Docusate Sodium 100 Mg Capsule) 100 mg PO BID [facility] Last Admin: 11/11/22 20:33 Dose: 100 mg Enoxaparin Sodium (Enoxaparin 40 Mg/0.4 Ml Syringe) 40 mg SQ DAILY [facility] Last Admin: 11/11/22 09:08 Dose: 40 mg Hydralazine HCl (Hydralazine 20 Mg/Ml Vial) 0 mg IV Q2HP PRN PRN Reason: Hypertension Potassium Chloride 40 meq/ (Dextrose) 520 mls @ 130 mls/hr IV UD PRN PRN Reason: Potassium Level < 3 Magnesium Sulfate (Magnesium Sulfate) 2 gm in 50 mls @ 25 mls/hr IV UD PRN PRN Reason: Magnesium Level </= 1.6 Latanoprost (Latanoprost Ophth Drops 2.5ml Bottle) 1 gtt OU QHS [facility] Last Admin: 11/11/22 20:34 Dose: 1 gtt Melatonin (Melatonin 3 Mg Tablet) 3 mg PO QPM@1900 [facility] Last Admin: 11/11/22 19:27 Dose: 3 mg Memantine (Memantine 10 Mg Tablet) 10 mg PO QPM [facility] Last Admin: 11/11/22 20:33 Dose: 10 mg Omeprazole (Omeprazole 20 Mg Capsule) 20 mg PO QDAY [facility] Last Admin: 11/11/22 09:08 Dose: 20 mg Ondansetron HCl (Ondansetron 4 Mg/2 Ml Vial) 4 mg IV Q4HP PRN PRN Reason: Nausea And Vomiting Timolol 0.5 % Drops 1 dose OP QDAY [facility] Last Admin: 11/11/22 20:35 Dose: 1 dose Polyethylene Glycol (Polyethylene Glycol 3350 17 Gm Packet) 17 gm PO DAILYP PRN PRN Reason: Constipation Potassium Chloride (Potassium Chloride 20 Meq Tablet) 40 meq PO UD PRN PRN Reason: Potassium Level of 3-3.5 Potassium Chloride (Potassium Chloride 20 Meq Tablet) 40 meq PO UD PRN PRN Reason: Potassium Level < 3 Senna (Sennosides 1 Tablet) 2 tab PO DAILYP PRN PRN Reason: Constipation Simvastatin (Simvastatin 40 Mg Tablet) 80 mg PO HS [facility] Last Admin: 11/11/22 20:33 Dose: 80 mg Terazosin HCl (Terazosin 5 Mg Capsule) 5 mg PO QHS [facility] Last Admin: 11/11/22 21:33 Dose: 5 mg A/P Narrative A/P Narrative: A: *Acute CVA(right frontoparietal), dysarthria: - *Oropharyngeal Dysphagia, moderate: *Early Alzheimer's dementia: *HTN/HLD: *GERD: * P: -DAPT x21 days -Statin -restart home ACEI if BP increases, otherwise decrease dose on d/c -Neurochecks -echo pending -ST eval, dysphagia diet -PT/OT -CM for placement needs -ppx: Lovenox/home PPI Time Spent With Patient Time: Total time spent is greater than 50% in coordination of care (as documented) at patient's floor/unit and/or counseling patient: QUALITY Stroke Onset of Symptoms Date: 11/10/22 Onset of Symptoms Time: 04:00 Symptom Onset Unknown: No
[2022-11-12] MEDS: Timolol 0.5 % drops OP SCH (09:35)
[2022-11-12] MEDS: OMEPRAZOLE 20 MG CAPSULE PO SCH (09:35)
[2022-11-12] MEDS: DOCUSATE SODIUM 100 MG CAPSULE PO SCH (09:35)
[2022-11-12] MEDS: CLOPIDOGREL 75 MG TABLET PO SCH (09:35)
[2022-11-12] MEDS: ENOXAPARIN 40 MG/0.4 ML SYRINGE SQ SCH (09:35)
[2022-11-12] MEDS: ASPIRIN 81 MG TAB.CHEW CHEWED SCH (09:35)
== END 2022-11-12 13:55 | disposition home health service (06) | DRG 66 ==
LOC: ED 07:29 → ICU 07:29
PROVIDERS: ADMIT Internal Medicine; ATTEND Internal Medicine

== ENCOUNTER 2023-01-02 16:59 | Observation (INO) ==
[2023-01-02 17:31] LABS: POC Calcium, Ionized 1.14 (1.16-1.32); POC Creatinine 1.1 (0.6-1.2); POC Potassium 4.4 (3.3-5.1)
[2023-01-02] MEDS ORDERED: hydrALAZINE 20 MG/ML VIAL IV ONE (18:23)
[2023-01-02 18:26] LABS: Basophils # (Auto) 0.03 K/mcL (0.00-0.30); Basophils % (Auto) 0.5 % (0.0-2.0); Eosinophils # (Auto) 0.07 K/mcL (0.00-0.70); Eosinophils % (Auto) 1.2 % (0.0-7.0); Hematocrit 40.4 % (40.1-51.0); Hemoglobin 13.4 g/dL (13.7-17.5); Lymphocytes # (Auto) 1.77 K/mcL (1.50-4.80); Lymphocytes % (Auto) 31.3 % (15.5-49.0); Mean Cell Volume 93.3 fL (80.0-100.0); Mean Corpuscular HGB Conc 33.2 g/dL (31.0-36.0); Mean Platelet Volume 10.6 fL (8.8-12.5); Monocytes # (Auto) 0.68 K/mcL (0.10-0.90); Neutrophils % (Auto) 54.6 % (38.0-78.0); Platelet Count 161 K/mcL (140-440); RBC 4.33 M/mcL (4.63-6.08); Red Cell Distribution Width 13.3 % (11.5-14.5); WBC 5.7 K/mcL (4.5-11.0)
[2023-01-02] MEDS ORDERED: hydrALAZINE 20 MG/ML VIAL IV PRN (19:31)
[2023-01-02] MEDS ORDERED: SENNOSIDES 1 TABLET PO PRN (20:28)
[2023-01-02] MEDS ORDERED: LACTULOSE 20 GM/30 ML ORAL.SOL PO PRN (20:28)
[2023-01-02] MEDS ORDERED: ACETAMINOPHEN 325 MG TABLET PO PRN (20:28)
[2023-01-02] MEDS ORDERED: ONDANSETRON 4 MG/2 ML VIAL IV PRN (20:28)
[2023-01-02] MEDS: 0.9 % SODIUM CHLORIDE 10 ML SYRINGE IV SCH (22:10)
[2023-01-02] MEDS: PANTOPRAZOLE 40 MG PACKET PO SCH (22:10)
[2023-01-02 22:57] LABS: ALT/SGPT 12 U/L (<40); AST/SGOT 20 U/L (<40); Albumin/Globulin Ratio 1.4 (1.0-2.3); Alkaline Phosphatase 114 U/L (39-117); Bilirubin,Total 0.4 mg/dL (0.1-1.0); Blood Urea Nitrogen 14 mg/dL (8-23); Calcium 8.5 mg/dL (8.6-10.4); Carbon Dioxide 22 mmol/L (22-30); Chloride 102 mmol/L (96-108); Globulin 2.9 gm/dL (2.2-3.7); Glomerular Filtration Rate 84; Glucose 148 mg/dL (70-105)
[2023-01-03 02:11] LABS: Appearance,Urine CLEAR (Clear); Bilirubin,Urine Negative (Negative); Color,Urine YELLOW; Culture Indicated,Urine No; Glucose,Urine (UA) Negative (Negative); Ketones,Urine Negative (Negative); Leukocyte Esterase,Urine Negative /uL (Negative); Nitrate,Urine Negative (Negative); Protein,Urine Negative (Negative); Specific Gravity,Urine 1.012 (1.000-1.035); Urine Blood Negative (Negative); Urobilinogen,Urine Negative
[2023-01-03 02:18] LABS: Amphetamine Screen,Urine None detected; Barbiturate Screen,Urine None detected; Benzodiazepines Screen,Urine None detected; Cannabinoid Screen,Urine None detected; Cocaine Screen,Urine None detected; Opiate Screen,Urine None detected; Oxycodone, Urine Screen None detected; Phencyclidine Screen,Urine None detected
[2023-01-03] MEDS: 0.9 % SODIUM CHLORIDE 10 ML SYRINGE IV SCH (06:03)
[2023-01-03 06:41] LABS: Basophils # (Auto) 0.03 K/mcL (0.00-0.30); Basophils % (Auto) 0.5 % (0.0-2.0); Eosinophils # (Auto) 0.08 K/mcL (0.00-0.70); Eosinophils % (Auto) 1.2 % (0.0-7.0); Hematocrit 36.9 % (40.1-51.0); Hemoglobin 12.1 g/dL (13.7-17.5); Lymphocytes # (Auto) 1.95 K/mcL (1.50-4.80); Lymphocytes % (Auto) 29.4 % (15.5-49.0); Mean Cell Volume 93.4 fL (80.0-100.0); Mean Corpuscular HGB Conc 32.8 g/dL (31.0-36.0); Mean Platelet Volume 10.2 fL (8.8-12.5); Monocytes # (Auto) 0.73 K/mcL (0.10-0.90); Neutrophils % (Auto) 57.4 % (38.0-78.0); Platelet Count 144 K/mcL (140-440); RBC 3.95 M/mcL (4.63-6.08); Red Cell Distribution Width 13.2 % (11.5-14.5); WBC 6.6 K/mcL (4.5-11.0)
[2023-01-03 07:10] LABS: ALT/SGPT 9 U/L (<40); AST/SGOT 12 U/L (<40); Albumin 3.4 gm/dL (3.2-5.2); Albumin/Globulin Ratio 1.3 (1.0-2.3); Alkaline Phosphatase 100 U/L (39-117); Bilirubin,Total 0.5 mg/dL (0.1-1.0); Blood Urea Nitrogen 15 mg/dL (8-23); Calcium 8.5 mg/dL (8.6-10.4); Carbon Dioxide 21 mmol/L (22-30); Chloride 106 mmol/L (96-108); Globulin 2.7 gm/dL (2.2-3.7); Glomerular Filtration Rate 84; Glucose 94 mg/dL (70-105)
[2023-01-03] MEDS: PANTOPRAZOLE 40 MG PACKET PO SCH (08:11)
[2023-01-03] MEDS ORDERED: LOSARTAN 25 MG TABLET PO SCH (09:00)
[2023-01-03] MEDS ORDERED: ASPIRIN 81 MG TAB.CHEW PO SCH (09:00)
== END 2023-01-03 09:16 | disposition home or self-care (01) ==
LOC: ED 16:59 → ICU 16:59
PROVIDERS: ADMIT Internal Medicine; ATTEND Internal Medicine